=== PATIENT | female | born 1990 | race Caucasian/White ===

== ENCOUNTER → 2016-11-25 | Outpatient (CLI) | payer BC | END | disposition home or self-care (01) | LOC: MMGSC 13:23 | PROVIDERS: ATTEND Family Medicine | DX: J02.9 Acute pharyngitis, unspecified (principal) | CPT/HCPCS: 87070 ==

== ENCOUNTER → 2017-04-05 | Outpatient (CLI) | payer BC | LOC: MMGSC 15:02 | PROVIDERS: ATTEND Family Medicine | DX: J02.9 Acute pharyngitis, unspecified (principal) | CPT/HCPCS: 87070 ==

== ENCOUNTER → 2017-11-19 | Outpatient (CLI) | payer BC ==
[2017-11-19 15:14] LABS: HCT 43.8 % (34.0-46.0); HGB 14.3 gm/dL (11.4-16.0); MCH 28.3 pg (25.0-35.0); MCHC 32.7 g/dL (31.0-37.0); MCV 86.6 fL (80.0-100.0); Platelet Count 309 k/uL (150-450); RBC 5.06 m/uL (3.80-5.40); RDW 12.4 % (11.5-15.5); WBC 9.5 k/uL (3.8-10.6)
[2017-11-19 15:22] LABS: Partial Thromboplastin Time 25.8 sec (22.0-30.0); Prothrombin Time 10.3 sec (9.0-12.0)
== END | disposition home or self-care (01) ==
LOC: LABPAT 14:45
PROVIDERS: ATTEND Otolaryngology
DX: Z01.812 Encounter for preprocedural laboratory examination (principal); J35.01 Chronic tonsillitis
CPT/HCPCS: 36415; 85027; 85610; 85730

== ENCOUNTER → 2017-11-26 | Day surgery (SDC) | payer BC ==
[2017-11-24 13:31] VITALS: BMI 47.9
[~2017-11-26] MED LIST: ACETAMINOPHEN IV (For NPO) 1,000 MG in EMPTY BAG 1 BAG IVPB ONE; BUPIVACAINE (PF) 0.5% 30 ML VIAL MISCELLANE ONE; DEXAMETHASONE SOD PHOSPHATE 10 MG/ML 1 ML VIAL IV ONE; HYDROmorphone (PF) 1 MG/ML ONE; HYDROmorphone PCA 5 MG/25 ML SYRINGE IV PRN; LACTATED RINGERS 1,000 ML IV SCH; LIDOCAINE 1% 20 ML VIAL (10MG/ML) FOR IV START INTRADERMA ONE; LIDOCAINE 1% INJ 10MG/ML (20 ML MDV) ONE; MIDAZOLAM 2 MG/2 ML VIAL IV PRN; MIDAZOLAM 2 MG/2 ML VIAL ONE; MORPHINE SULFATE 4 MG/ML SYRINGE IV PRN; NALOXONE 0.4 MG/ML 1 ML VIAL IV PRN; ONDANSETRON 4 MG/2 ML VIAL IVP ONE; ONDANSETRON 4 MG/2 ML VIAL IVP PRN; PROPOFOL 10 MG/ML 20 ML VIAL IV ONE; Pre Op ABX Message 1 EACH MISC MISCELLANE ONE; SCOPOLAMINE 1.5MG/72HR PATCH TRANSDERM ONE; SUCCINYLCHOLINE CHLORIDE 100 MG/5 ML SYR IV ONE; TANNIC ACID POWDER TOPICAL ONE; ceFAZolin IN SWFI 2 GM/20 ML SYRINGE IVP ONE; fentaNYL (PF) 50 MCG/ML 2 ML AMP ONE
--- NOTE | 2017-11-26 03:40 | HP ---
HISTORY AND PHYSICAL CHIEF COMPLAINT: Recurrent tonsillitis. HISTORY OF PRESENT ILLNESS: The patient is a pleasant 27-year-old female who was recently seen in my office with complaints of having recurrent episodes of tonsillitis despite treatment with various types of oral antibiotics. At the time that the patient was seen in my office, clinical examination of the oropharynx revealed 4+ cryptic tonsils filled with white cheesy debris. It was recommended that the patient undergo a tonsillectomy under general anesthesia. PAST MEDICAL HISTORY: Past medical history reveals patient has no known allergies to medications. She has not had any previous surgeries. She is not currently on any medications. There is no history of asthma, diabetes mellitus or hypertension. REVIEW OF SYSTEMS: Completely unremarkable. PHYSICAL EXAMINATION: This patient is a pleasant 27-year-old female who is alert and cooperative. HEENT EXAMINATION: The patient is normocephalic. Tympanic membranes are normal. Middle ear spaces are free of any fluid or infection. Pupils are equal, round and react to light and accommodation. Extraocular movements within normal limits. Intranasal examination reveals moderate septal deviation with compensatory hypertrophy of the inferior turbinates and a moderate amount of mucus on the mucous membranes and draining down the posterior pharynx. Examination of oropharynx reveals 4+ tonsillar hypertrophy with very prominent tonsillar crypts filled with white cheesy debris. Palpation of the neck, cranial nerves 2 to 12 and the remainder of the head and neck exam are within normal limits. CHEST/CARDIOVASCULAR: Both lung tobar are clear to percussion and auscultation. The patient is in regular sinus rhythm. S1, S2 are present without evidence of any murmurs, S3s or S4s. Peripheral pulses are bilaterally symmetrical and within normal limits. ABDOMEN: There is no evidence of any masses, megaly, or tenderness. The abdomen is soft. Skin is unremarkable. Musculoskeletal and neurological are within normal limits. The remainder of physical exam is essentially unremarkable. IMPRESSION: Chronic tonsillitis. PLAN: The patient is scheduled to undergo a tonsillectomy under general anesthesia in the a.m. ATTENTION RNS IN THE PRE-SURGICAL AREA: The only medications that I have ordered for this patient to receive preoperatively are 2 grams of Ancef IV and 1000 mg of Ofirmev IV, both to be given once an intravenous line has been established. If the pharmacy department sends any other medication, such as pre-surgical prophylactic antibiotics then that order should be cancelled and the medication returned to Pharmacy and make sure that the patient's account is credited appropriately. The only antibiotic that I have ordered is Ancef IV. I have discussed the risks, benefits and alternative therapies for the above-mentioned procedure and for both sedation/analgesia as well as necessary blood product administration, if indicated, as they pertain to this patient. The patient has indicated his or her understanding and acceptance of the risks and procedures discussed. MMEAMONL / STUARTN: [id number] /
[2017-11-26 12:17] VITALS: TEMP 97.2
[2017-11-26 14:19] VITALS: RESP 16
[2017-11-26 14:55] VITALS: BP 119/70; PULSE 70
--- NOTE | 2017-11-28 18:04 | OP ---
OPERATIVE REPORT DATE OF SURGERY: November 26. PREOPERATIVE DIAGNOSIS: Chronic tonsillitis. POSTOPERATIVE DIAGNOSIS: Chronic tonsillitis. ANESTHESIA: General. OPERATIVE PROCEDURE: Tonsillectomy. OPERATING SURGEON: Dr. Purvis. COMPLICATIONS: None. ESTIMATED BLOOD LOSS: Less than 50 mL. OPERATIVE PROCEDURE: The patient was placed on the Operating Table in the supine position, after uneventful induction and endotracheal intubation, satisfactory general anesthesia was obtained. Next, the #3 Jossie-Mookie mouth gag was introduced into the oropharynx, expanded and suspended from a Harrell Stand. Following this, both peritonsillar areas were injected with the tonsillar forceps and pulled medially. The sickle knife was used to make an incision 4 mm lateral to the anterior pillar, beginning at the superior pole and working down to the inferior pole with a similar incision being carried out parallel to the posterior pillar. The angle scissors and the serrated Earl dissector were used to dissect the tonsil away from the tonsillar fossa. The tonsil itself was excised en toto using the tonsillar snare. Hemostasis was obtained using suction cautery. A sponge was placed in the empty tonsillar fossa. Attention was then directed to the left tonsil where the same procedure was carried out, with the left tonsil being grasped with the tonsillar forceps and pulled medially. The sickle knife was used to make an incision 4 mm lateral to the anterior pillar beginning at the superior pole and working down to the inferior pole with a similar incision being carried out parallel to the posterior pillar. Once again, the angle scissors and the serrated Earl dissector were used to dissect the tonsil away from the tonsillar fossa and the tonsil itself was excised en toto using the tonsillar snare. Hemostasis was obtained using suction cautery. A sponge was placed in the empty tonsillar fossa. The mouth gag was relaxed for a period of approximately seven minutes and upon re-expanding and removing all sponges, no evidence of any active bleeding was noted. At this point, the procedure was terminated. There were no intraoperative complications. The patient tolerated the procedure well and was returned to the Recovery Room in satisfactory condition. MMODL / IJN: [id number] /
== END | disposition home or self-care (01) ==
LOC: OR 09:00
PROVIDERS: ATTEND Otolaryngology
DX: J35.01 Chronic tonsillitis (principal); J45.909 Unspecified asthma, uncomplicated; Z79.899 Other long term (current) drug therapy
CPT/HCPCS: 42826; 81025; 88304; J2250; J1100; J0690; J2405; J2001; J3010; J1170 ×2; J0131; J0330; J2704

== ENCOUNTER → 2018-04-25 | Outpatient (CLI) | payer BC ==
--- NOTE | 2018-04-25 13:59 | XR ---
EXAM TYPE: LUMBAR SPINE X RAY SERIES COMPARISON: NONE HISTORY: Low back pain TECHNIQUE: 4 views are submitted. FINDINGS: Alignment is anatomic. The pedicles are intact. The transverse processes are intact. There is no s pondylolysis or spondylolisthesis. IMPRESSION: 1. No acute process. If symptoms persist consider MRI.
== END | disposition home or self-care (01) ==
LOC: RADXRMAIN 12:53
PROVIDERS: ATTEND Family Medicine
DX: M54.5 Low back pain (principal)
CPT/HCPCS: 72110